=== PATIENT | female | born 1950 ===

== ENCOUNTER 2017-07-11 23:55 | Emergency (ER) | payer MEDICARE, OTHER ==
[2017-07-12 00:15] VITALS: BP 149/70; PULSE 87; RESP 16; TEMP 100; O2SAT 98
[2017-07-12] MEDS ORDERED: Promethazine/Cod 6.25mg-10mg/5ml Syr UD PO STA (00:16)
--- NOTE | 2017-07-12 00:43 | ED PDOC ---
HPI: Chest Pain Time Seen by Provider: 07/12/17 00:03 Chief Complaint (Nursing): Cough, Cold, Congestion Chief Complaint (Provider): Chest Pain History Per: Patient History/Exam Limitations: no limitations Onset/Duration Of Symptoms: Days (x 2) Current Symptoms Are (Timing): Still Present Additional Complaint(s): 66 year old female with a history of hypertension and diabetes presents to the ED complaining of chest pain with associated dry cough, onset 2 days ago. Chest pain worsens with breathing and coughing. Admits to taking over the counter cough suppressant with no relief. She reports a possible fever at home and diffuse body aches. Denies nausea, vomiting and diarrhea. PMD: Dr. Daniel Mccollum MD Past Medical History Reviewed: Historical Data, Nursing Documentation, Vital Signs Vital Signs: Last Vital Signs Temp 100 F H 07/12/17 00:10 Pulse 87 07/12/17 00:10 Resp 16 07/12/17 00:10 BP 149/70 07/12/17 00:10 Pulse Ox 98 07/12/17 00:50 - Medical History PMH: Diabetes, HTN, Hypothyroidism - Surgical History Other surgeries: Tubal ligation - Family History Family History: States: Unknown Family Hx - Home Medications Home Medications: Ambulatory Orders Medication Instructions Recorded Insulin Lispro Mix 75/25 [HumaLog 10 units SC TID 07/04/16 MIX 75/25] Levothyroxine [Synthroid] 100 mcg PO DAILY 07/04/16 Lisinopril [Zestril] 10 mg PO DAILY 07/04/16 Ondansetron [Zofran] 4 mg PO Q8H #12 tab 07/04/16 metFORMIN [glucOPHAGE] 1,000 mg PO DAILY 07/04/16 Benzonatate [Tessalon Perle] 100 mg PO TID PRN #15 capsule 07/12/17 Oseltamivir [Tamiflu] 75 mg PO BID #10 cap 07/12/17 - Allergies Allergies/Adverse Reactions: Allergies Allergy/AdvReac Type Severity Reaction Status Date / Time No Known Allergies Allergy Verified 07/04/16 03:00 Review of Systems ROS Statement: Except As Marked, All Systems Reviewed And Found Negative Constitutional: Positive for: Fever, Other (body aches) Cardiovascular: Positive for: Chest Pain Respiratory: Positive for: Cough Physical Exam - Reviewed Nursing Documentation Reviewed: Yes Vital Signs Reviewed: Yes - Physical Exam Appears: Positive for: Uncomfortable Head Exam: Positive for: ATRAUMATIC, NORMOCEPHALIC Skin: Positive for: Normal Color, Warm, Dry Eye Exam: Positive for: EOMI, Normal appearance, PERRL Neck: Positive for: Normal, Painless ROM Cardiovascular/Chest: Positive for: Tachycardia Respiratory: Positive for: Normal Breath Sounds. Negative for: Respiratory Distress Gastrointestinal/Abdominal: Positive for: Normal Exam, Soft Back: Positive for: Normal Inspection. Negative for: L CVA Tenderness, R CVA Tenderness, Vertebral Tenderness Extremity: Positive for: Normal ROM. Negative for: Deformity Neurologic/Psych: Positive for: Alert, Oriented. Negative for: Motor/Sensory Deficits - Laboratory Results Result Diagrams: 07/12/17 01:15 07/12/17 01:15 - ECG O2 Sat by Pulse Oximetry: 98 (RA) Pulse Ox Interpretation: Normal Medical Decision Making Medical Decision Making: Time: 00:16 Impression: 66 yo female with chest pain in setting of flu like symptoms Initial Plan: --EKG --CMP --Lactic acid plasma --Troponin I --CBC --Promethazine/ Codeine 10 ml PO --Toradol 10 mg IVP --Blood cx --Influenza A B Chest x-ray shows no active disease. Labs show no clinically significant abnormalities. Patient shows improvement of symptoms. Provider has strong clinical suspicion of flu even with negative flu test results. Will be given Tamiflu for treatment. Diagnosis: Influenza Scribe Attestation: Documented by Denisse Pratt, acting as a scribe for Abundio Payton MD. Provider Scribe Attestation: All medical record entries made by the Scribe were at my direction and personally dictated by me. I have reviewed the chart and agree that the record accurately reflects my personal performance of the history, physical exam, medical decision making, and the department course for this patient. I have also personally directed, reviewed, and agree with the discharge instructions and disposition. Disposition - Clinical Impression Clinical Impression: Influenza - Patient ED Disposition Is Patient to be Admitted: No - Disposition Referrals: Daniel Mccollum MD [Primary Care Provider] - Disposition: Routine/Home Disposition Time: 03:07 Condition: STABLE Prescriptions: Benzonatate [Tessalon Perle] 100 mg PO TID PRN #15 capsule PRN Reason: Cough Oseltamivir [Tamiflu] 75 mg PO BID #10 cap Instructions: Influenza (ED) Forms: [facility] (Croatian) Print Language: BERMUDIAN
[2017-07-12] MEDS ORDERED: Promethazine 6.25 MG/5 ML CUP ONE (00:48)
[2017-07-12] MEDS ORDERED: Promethazine/Cod 6.25mg-10mg/5ml Syr UD ONE (01:02)
[2017-07-12 01:19] LABS: BASO % 0.3 % (0.0-2.0); EOS % 0.3 % (0.0-4.0); HEMOGLOBIN 11.8 g/dL (12.0-16.0); LYMPH # 0.5 K/uL (1.0-4.3); LYMPH % 9.8 % (20.0-40.0); MEAN CELL VOLUME 84.6 fl (81.0-99.0); MEAN CORPUSCULAR HEMOGLOBIN 26.9 pg (27.0-31.0); MEAN CORPUSCULAR HGB CONC 31.8 g/dL (33.0-37.0); MEAN PLATELET VOLUME 9.3 fl (7.2-11.7); MONO # 0.3 K/uL (0.0-0.8); MONO % 6.2 % (0.0-10.0); NEUT # 4.5 K/uL (1.8-7.0); NEUT % 83.4 % (50.0-75.0); PLATELET COUNT 169 K/uL (130-400); RBC 4.38 Mil/uL (3.80-5.20); WHITE BLOOD COUNT 5.4 K/uL (4.8-10.8)
[2017-07-12 01:29] LABS: ALB/GLOB RATIO 1.3 (1.0-2.1); ALBUMIN 4.5 g/dL (3.5-5.0); ALT/SGPT 30 U/L (9-52); AST/SGOT 21 U/L (14-36); BLOOD UREA NITROGEN 27 mg/dl (7-17); CALCIUM 9.2 mg/dL (8.4-10.2); GFR AFRICAN-AMERICAN 49; GFR NON-AFRICAN AMERICAN 41
[2017-07-12 04:11] LABS: ANISOCYTOSIS SLIGHT; BANDS 3 % (0-2); BASOPHIL 1 % (0-2); HYPOCHROMIC SLIGHT; LYMPHOCYTE 12 % (20-50); MONOCYTE 7 % (0-10); NEUTROPHIL 77 % (42-75); PLATELET ESTIMATE NORMAL (NORMAL); STOMATOCYTES SLIGHT; TOTAL CELLS COUNTED 100
--- NOTE | 2017-07-12 10:59 | RAD ---
HISTORY: cough COMPARISON: No prior. TECHNIQUE: Chest PA and lateral FINDINGS: LUNGS: No active pulmonary disease. PLEURA: No significant pleural effusion identified. No pneumothorax apparent. CARDIOVASCULAR: Atherosclerotic aortic calcifications. Cardiomediastinal silhouette within normal limits. OSSEOUS STRUCTURES: Degenerative changes. VISUALIZED UPPER ABDOMEN: Normal. OTHER FINDINGS: None. IMPRESSION: No active disease.
--- NOTE | 2017-07-12 18:08 | CARD ---
APPROVED REPORT EKG Measurement Heart [id number] <Conclusion> Normal sinus rhythm Nonspecific T wave abnormality Abnormal ECG
== END 2017-07-12 03:51 | disposition home or self-care (01) ==
LOC: H.ER 23:55
DX: J11.1 Influenza due to unidentified influenza virus with other respiratory manifestations (principal); I10 Essential (primary) hypertension; E11.9 Type 2 diabetes mellitus without complications; E03.9 Hypothyroidism, unspecified; Z79.4 Long term (current) use of insulin
CPT/HCPCS: 71046; 80053; 82948; 83605; 84484; 85025; 87040; 87804; 93005; 96374; 99282; J1885